=== PATIENT | male | born 1950 | race Caucasian/White ===

== ENCOUNTER 2018-01-24 10:22 | Emergency (ER) | payer MEDICARE ==
[~2018-01-24] VITALS: Ht 185.4 cm; Wt 115.0 kg
[2018-01-24 11:08] VITALS: BP 193/81; PULSE 60; RESP 18; TEMP 97.9; O2SAT 100
[2018-01-24 12:14] VITALS: BP 178/81; PULSE 55; RESP 12; O2SAT 99
[2018-01-24] MEDS ORDERED: AMOX500C PO (12:14)
--- NOTE | 2018-01-24 12:36 | PD ---
HPI Chief Complaint: ENT Complaint Time Seen by Provider: 11:54 Travel History International Travel<30 days: No Contact w/Intl Traveler<30days: No Traveled to known affect area: No History of Present Illness HPI 68-year-old male complains of left ear pain left upper neck pain. Patient states the symptoms started 2 weeks ago. Patient states the pain is sharp pain collapse of left upper neck and left ear. Patient denies any pain radiation. She denies any fever chills. Patient denies any sore throat coughing congestion. Patient was seen a local urgent care center and given prescription for Z-Douglas and advised to use the nose spray. Patient finished the medication without relief of the pain. On a scale of 1-10 the pain is a 7. Patient also complains of a draining lesion right upper back for the past several days. PFSH Past Medical History Medical History: Denies Significant Hx Influenza Vaccination: No Past Surgical History Surgical History: No Previous Surgery Social History Alcohol Use: Yes (WINE DAILY) Tobacco Use: No Substance Use: No Allergies-Medications (Allergen,Severity, Reaction): Coded Allergies: No Known Allergies (Unverified , 01/24/18) Reported Meds & Prescriptions Reported Meds & Active Scripts Active Reported Amoxicillin 500 Mg Cap 500 Mg PO BID Review of Systems General / Constitutional: No: Fever Eyes: No: Visual changes HENT: Positive: Neck Pain, Earache, No: Headaches Cardiovascular: No: Chest Pain or Discomfort Respiratory: No: Shortness of Breath Gastrointestinal: No: Abdominal Pain Genitourinary: No: Dysuria Musculoskeletal: No: Pain Skin: No Rash Neurologic: No: Weakness Psychiatric: No: Depression Endocrine: No: Polydipsia Hematologic/Lymphatic: No: Easy Bruising Physical Exam Narrative GENERAL: Well-nourished, well-developed patient. SKIN: Focused skin assessment warm/dry. HEAD: Normocephalic. EYES: No scleral icterus. No injection or drainage. TM: Clear. Ear canals normal. NECK: Supple, trachea midline. No JVD or lymphadenopathy. Patient has mild tenderness palpation left anterior cervical area. No meningismus noted. No rash noted. CARDIOVASCULAR: Regular rate and rhythm without murmurs, gallops, or rubs. RESPIRATORY: Breath sounds equal bilaterally. No accessory muscle use. GASTROINTESTINAL: Abdomen soft, non-tender, nondistended. MUSCULOSKELETAL: No cyanosis, or edema. BACK: Nontender without obvious deformity. No CVA tenderness. Patient has a pustule lesion on the right upper back with tenderness and redness associate with that. Data Data Last Documented VS Vital Signs Date Time Temp Pulse Resp B/P (MAP) Pulse Ox O2 Delivery O2 Flow Rate FiO2 01/24/18 12:14 55 12 178/81 (113) 99 Room Air 01/24/18 11:08 97.9 Orders Orders Complete Blood Count With Diff (01/24/18 12:29) Basic Metabolic Panel (Bmp) (01/24/18 12:29) Prothrombin Time / Inr (Pt) (01/24/18 12:29) Act Partial Throm Time (Ptt) (01/24/18 12:29) Iv Access Insert/Monitor (01/24/18 12:29) Ct Soft Tiss Neck W Iv Cont (01/24/18 12:29) Iohexol 350 Inj (Omnipaque 350 Inj) (01/24/18 15:15) Labs Laboratory Tests Test 01/24/18 12:16 White Blood Count 13.8 TH/MM3 Red Blood Count 4.77 MIL/MM3 Hemoglobin 14.5 GM/DL Hematocrit 43.2 % Mean Corpuscular Volume 90.5 FL Mean Corpuscular Hemoglobin 30.5 PG Mean Corpuscular Hemoglobin Concent 33.6 % Red Cell Distribution Width 13.8 % Platelet Count 230 TH/MM3 Mean Platelet Volume 7.6 FL Neutrophils (%) (Auto) 85.2 % Lymphocytes (%) (Auto) 10.1 % Monocytes (%) (Auto) 3.8 % Eosinophils (%) (Auto) 0.7 % Basophils (%) (Auto) 0.2 % Neutrophils # (Auto) 11.8 TH/MM3 Lymphocytes # (Auto) 1.4 TH/MM3 Monocytes # (Auto) 0.5 TH/MM3 Eosinophils # (Auto) 0.1 TH/MM3 Basophils # (Auto) 0.0 TH/MM3 CBC Comment DIFF FINAL Differential Comment Prothrombin Time 10.2 SEC Prothromb Time International Ratio 1.0 RATIO Activated Partial Thromboplast Time 23.8 SEC Blood Urea Nitrogen 20 MG/DL Creatinine 1.18 MG/DL Random Glucose 121 MG/DL Calcium Level 8.8 MG/DL Sodium Level 143 MEQ/L Potassium Level 4.1 MEQ/L Chloride Level 107 MEQ/L Carbon Dioxide Level 31.3 MEQ/L Anion Gap 5 MEQ/L Estimat Glomerular Filtration Rate 61 ML/MIN MDM Medical Decision Making Medical Screen Exam Complete: Yes Emergency Medical Condition: Yes Interpretation(s) 1338 PM. CBC WBC 13.8. 85 neutrophil. BMP with BUN of 20. Differential Diagnosis Differential diagnosis including neuralgia, lymphadenitis, abscess. Narrative Course 68-year-old male with left upper neck pain left ear pain. Examination reveals tenderness on palpation left upper neck area. Diagnosis Primary Impression: Otalgia, left ear Additional Impression: Infected skin lesion Patient Instructions: General Instructions Additional Instructions: Clindamycin and Bactrim DS as directed. Follow-up with ENT if persistent problem. Return if worse. Med/Other Pt SpecificInfo: Prescription(s) given Scripts Sulfamethoxazole-Trimethoprim (Bactrim DS) 800-160 Mg Tab 1 TAB PO BID for Infection, #14 TAB 0 Refills Prov: Benny Glass MD 01/24/18 Clindamycin (Clindamycin) 150 Mg Cap 300 MG PO QID for Infection, #56 CAP 0 Refills Prov: Benny Glass MD 01/24/18 Disposition: 01 DISCHARGE HOME Condition: Stable Benny Glass MD Jan 24, 2018 12:36
[2018-01-24 13:12] LABS: AUTOMATED NEUTROPHIL # 11.8 TH/MM3 (1.8-7.7); BASOPHIL % 0.2 % (0.0-2.0); EOSINOPHIL # 0.1 TH/MM3 (0-0.4); EOSINOPHIL % 0.7 % (0.0-4.0); HEMATOCRIT 43.2 % (39.0-51.0); HEMOGLOBIN 14.5 GM/DL (13.0-17.0); LYMPH % 10.1 % (9.0-44.0); LYMPHOCYTE # 1.4 TH/MM3 (1.0-4.8); MEAN CELL VOLUME 90.5 FL (80.0-100.0); MEAN CORPUSCULAR HEMOGLOBIN 30.5 PG (27.0-34.0); MEAN CORPUSCULAR HGB CONC 33.6 % (32.0-36.0); MEAN PLATELET VOLUME 7.6 FL (7.0-11.0); MONO % 3.8 % (0.0-8.0); MONOCYTE # 0.5 TH/MM3 (0-0.9); NEUT % 85.2 % (16.0-70.0); PLATELET COUNT 230 TH/MM3 (150-450); RED BLOOD COUNT 4.77 MIL/MM3 (4.50-5.90); RED CELL DISTRIBUTION WIDTH 13.8 % (11.6-17.2); WHITE BLOOD COUNT 13.8 TH/MM3 (4.0-11.0)
[2018-01-24 13:21] LABS: PROTHROMBIN TIME - PATIENT 10.2 SEC (9.8-11.6)
[2018-01-24 13:27] LABS: BICARBONATE 31.3 MEQ/L (21.0-32.0); CALCIUM 8.8 MG/DL (8.5-10.1); CREATININE 1.18 MG/DL (0.60-1.30)
[2018-01-24] MEDS ORDERED: IOHEXOL 350 MG/ML 10 ML VIAL (for RAD DIAG) IVCONTRAST ONE (15:15)
--- NOTE | 2018-01-24 15:42 | RADRPT ---
EXAM DATE/TIME: 01/24/2018 15:09 [facility] COMPARISON: No previous studies available for comparison. INDICATIONS : Left ear pain, dizzy vomiting IV CONTRAST: 18.64 cc Omnipaque 350 (iohexol) IV RADIATION DOSE: 71 CTDIvol (mGy) MEDICAL HISTORY : None SURGICAL HISTORY : None. ENCOUNTER: Initial ACUITY: 1 day PAIN SCALE: 8/10 LOCATION: Left ear TECHNIQUE: Volumetric scanning of the neck was performed. Using automated exposure control and adjustment of th e mA and/or kV according to patient size, radiation dose was kept as low as reasonably achievable to obtain optimal diagnostic quality images. DICOM format image data is available electronically for r eview and comparison. FINDINGS: The right and left temporal bones are unremarkable. There is no mastoiditis. The nasopharynx and oropharynx unremarkable. Chronic region appears normal. The submandibular gland s are unremarkable. There is no mass or adenopathy Thyroid appears normal Degenerative changes are present in the cervical spine CONCLUSION: I do not see etiology of patient's left ear pain. MRI of the skull base male for mor e information if symptoms persist. I don't see evidence for skull base mass on the CT. Zackary Elam MD FACR on January 24, 2018 at 15:38 Board Certified Radiologist. This report was verified electronically.
[2018-01-24] MEDS ORDERED: BACT800T5 PO (16:21)
[2018-01-24] MEDS ORDERED: CLIN150C14 PO (16:21)
[2018-01-24 16:34] VITALS: BP 164/82; PULSE 78; RESP 15; O2SAT 98
== END 2018-01-24 17:13 | disposition home or self-care (01) ==
LOC: NEPC 10:22
DX: H92.02 Otalgia, left ear (principal); L08.9 Local infection of the skin and subcutaneous tissue, unspecified; M54.2 Cervicalgia
CPT/HCPCS: 70491; 80048; 85025; 85610; 85730; 99284; Q9967